=== PATIENT | male | born 1965 | race Caucasian/White ===

== ENCOUNTER 2021-12-27 11:55 | Emergency (ER) | payer OTHER, SELFPAY ==
--- NOTE | ~2021-12-27 | XR_ITS ---
EXAMINATION: XR chest 2V DATE: 12/27/2021 12:24 INDICATION: Chest pain. TECHNIQUE: PA and lateral views of the chest were obtained. COMPARISON: None FINDINGS: The lungs are clear with no focal airspace opacities, pulmonary edema, pleural effusion or pneumothor ax. The cardiomediastinal silhouette is normal. Mild thoracic spondylosis with minimal anterior wedgi ng of a couple lower thoracic vertebral bodies. IMPRESSION: 1. No acute cardiopulmonary disease. Reviewed, dictated and finalized at location A. L ATTORNEY
--- NOTE | 2021-12-27 12:00 | ECG_ITS ---
Measurements Intervals [place] Rate: 59 P: 18 MN: 199 QRS: 44 QRSD: 121 T: 17 QT: 394 QTc: 392 Interpretive Statements SINUS BRADYCARDIA ANTEROSEPTAL INFARCT, AGE INDETERMINATE BASELINE ARTIFACT- I, II, III, AVR, AVL, AVF, V1, V3-V6 ABNORMAL ECG Electronically Signed On 12-27-2021 12:11:09 GRAPHICS INTERN by Klaus Yancey D.O.
[2021-12-27 12:07] VITALS: BP 166/88; PULSE 60; RESP 20; O2SAT 97
[2021-12-27 12:11] VITALS: PULSE 63
[2021-12-27 12:13] LABS: Basophils Absolute Auto 0.1 K/mm3 (0.0-0.1); Basophils Percent Auto 0.6 % (0.2-1.2); Eosinophils Percent Auto 0.4 % (0-4.4); Hematocrit 43.5 % (42.0-52.0); Hemoglobin 14.9 g/dL (14.0-18.0); Immature Granulocyte Absolute 0.04 K/mm3 (0.00-0.031); Immature Granulocyte Percent A 0.4 % (0-0.5); Lymphocytes Percent Auto 16.8 % (18.3-44.2); Mean Corpuscular HGB Conc 34.3 g/dl (32-36); Mean Corpuscular Hemoglobin 31.6 pg (26-34); Mean Corpuscular Volume 92.4 fl (80-100); Mean Platelet Volume 11.4 fl (7.4-10.4); Monocytes Absolute Auto 0.6 K/mm3 (0.1-0.6); Monocytes Percent Auto 6.6 % (2.6-8.5); Neutrophils Absolute Auto 6.7 K/mm3 (1.3-6.7); Neutrophils Percent Auto 75.2 % (45.5-73.1); Platelet Count Result 193 k/mm3 (150-375); Red Blood Count 4.71 M/mm3 (4.6-6.20); White Blood Count 8.9 K/mm3 (4.5-10.0)
[2021-12-27 12:24] LABS: INR 1.1; Prothrombin Time 13.7 Seconds (11.1-14.7)
[2021-12-27 12:25] LABS: Partial Thromboplastin Time 24.1 SECONDS (22.3-36.8)
[2021-12-27 12:28] LABS: Alanine Aminotransferase 33 U/L (4-50); Albumin Level 4.7 g/dL (3.5-5.1); Alkaline Phosphatase 64 U/L (38-126); Anion Gap 9 mmol/L (8-16); Aspartate Amino Transferase 36 U/L (17-59); Bilirubin,Total 0.6 mg/dL (0.2-1.3); Blood Urea Nitrogen 24 mg/dL (9-20); Carbon Dioxide 23 mmol/L (22-30); Chloride 105 mmol/L (98-107); Estimated CRCL calculation 92 ml/min; Estimated Glomerular Filt Rate > 60; Glucose 99 mg/dL (65-110); Lipase 132 U/L (23-300); Potassium 4.6 mmol/L (3.4-5.0); Sodium 137 mmol/L (137-145)
[2021-12-27 12:40] LABS: Troponin I < 0.012 ng/mL (0.000-0.034)
[2021-12-27] MEDS: ASPIRIN 81 MG CHEWABLE TABLET 324 MG PO (13:02)
--- NOTE | 2021-12-27 13:08 | ED.CHESTPAIN ---
HPI - Chest Pain General Chief Complaint: Chest Pain Stated Complaint: chest tightness/nausea Time Seen by Provider: 12/27/21 12:26 Source: patient History of Present Illness HPI narrative: Patient presents with chest tightness and nausea. Patient was walking around at [employer] around 1130 has an onset of left-sided chest pressure associated with nausea. Ports his symptoms come in waves without clear aggravating or alleviating symptoms. Since symptom onset appears to be subsiding but is not completely resolved. Denies any shortness of breath. Reports his brother had a heart attack at 53 and his father had a heart attack and bypass in his 60s and is concerned that he may have had a heart issue. Reports he had a similar event several years ago was evaluated but was unsure what the diagnosis was. He denies recent hospitalizations prior history of blood clots Related Data Allergies Allergy/AdvReac Type Severity Reaction Status Date / Time No Known Allergies Allergy Mild Verified 09/04/21 15:41 Review of Systems Review of Systems: CONSTITUTIONAL: Denies fever, chills, or sweats. EYES: Denies visual changes, redness, or discharge. ENT: Denies rhinorrhea, congestion, sore throat, or otalgia. CARDIOVASCULAR: Denies chest pain, palpitations, or edema. RESPIRATORY: Denies cough or dyspnea. GASTROINTESTINAL: Denies abdominal pain, nausea, vomiting, or diarrhea. GENITOURINARY: Denies dysuria or hematuria. SKIN: Denies rash or itching. MUSCULOSKELETAL: Denies back pain, joint pain, or myalgia. NEUROLOGIC: Denies headache, numbness, dizziness, or weakness. PSYCHIATRIC: Denies anxiety or depression. All systems reviewed & are unremarkable except as noted in HPI and below PMFSH Family History Family History Father Depression Hypertension Family history of elevated blood lipids Family history of cardiovascular disease Family history of coronary artery disease Social History Social History (Updated 12/27/21 @ 13:10 by Ace Mixon MD) Smoking status: Never smoker Alcohol intake: current Other substance usage details: gummies to sleep Exam Narrative: GENERAL: Well-appearing, well-nourished, and in no acute distress. HEAD: Normocephalic, atraumatic. EYES: PERRLA and EOMI. ENT: Nares clear, no rhinorrhea or epistaxis. Mucous membranes moist. NECK: Supple. No masses. No JVD CHEST: Clear to auscultation. No respiratory distress. No wheezes rales or rhonchi HEART: Regular rate and rhythm. No murmur heard. Normal peripheral pulses. ABDOMEN: Soft, nontender, nondistended, normal active bowel sounds. EXTREMITIES: Normal range of motion. No edema. SKIN: Warm, dry, no rash. NEURO: No focal deficits. Alert and oriented x3. PSYCH: Normal mood and affect. Course Reevaluation(s) Reevaluation #1: Patient resting comfortably reports symptoms have resolved results and plan reviewed with patient. Patient is comfortable outpatient plan. Date: 12/27/21 Time: 16:03 Vital Signs Vital signs: Vital Signs Pulse Rate 60 12/27/21 12:07 Respiratory Rate 20 12/27/21 12:07 Blood Pressure 166/88 H 12/27/21 12:07 Pulse Oximetry 97 12/27/21 12:07 Pulse Rate 61 12/27/21 16:22 Respiratory Rate 15 12/27/21 16:22 Blood Pressure 133/79 12/27/21 16:22 Pulse Oximetry 97 12/27/21 16:22 MDM - Chest Pain MDM Narrative Medical decision making narrative: H&P as above, vss, pt looks clinically well, exam reassuring, labs clinically unremarkable including delta troponin, img without acute process, additional labs/img considered, symptomatic relief available as needed, on reevaluation pt continues to looks clinically well. Symptoms remain of unclear etiology there is low clinical concern for ACS, PE, dissection, pneumothorax, plan to tx/monitor as op w/ pcm f/u findings/plan discussed with pt, pt agree/comfortable with plan, return precautions given Lab Data R
[2021-12-27] MEDS: SODIUM CHLORIDE 0.9% IV 1,000 ML 999 ML IV CONT (14:41)
[2021-12-27 15:50] LABS: Troponin I < 0.012 ng/mL (0.000-0.034)
[2021-12-27 16:22] VITALS: BP 133/79; PULSE 61; RESP 15; O2SAT 97
== END 2021-12-27 16:23 | disposition home or self-care (01) ==
PROVIDERS: Emergency Medicine; Emergency Provider Emergency Medicine; PCP Family Medicine
DX: R07.89 Other chest pain (principal); R00.1 Bradycardia, unspecified; R94.31 Abnormal electrocardiogram [ECG] [EKG]
CPT/HCPCS: 36415; 71046; 80053; 83690; 84484; 85025; 85610; 85730; 93005; 96360; 99284; A9270; J7030

== ENCOUNTER 2022-01-22 09:39 | Outpatient (CLI) | payer OTHER, SELFPAY ==
--- NOTE | 2022-01-22 09:47 | EST_ITS ---
Patient Info Name: Albino Tsai Age: 56 years : 1965 Gender: Male Ht: 75 in Wt: 265 lbs BSA: 2.55 m2 Technical Quality: Fair Exam Date: 01/22/2022 10:29 AM Exam Location: [facility] Patient Status: Outpatient Admit Date: 01/22/2022 Staff Ordering Physician: Susanna Mcpherson DO Health Insurance Specialist: Myke Garcia RDCS, RT Attending Provider: KLAUS ARROYO DO Referring Physician: Vida RODRIGUEZ; Exercise Technologist: Luba Romero RDCS Exercise Physician: Klaus Arroyo DO Exam Type: CA stress echo Study Info Indications R07.9 - Chest pain, unspecified Treadmill exercise stress echocardiogram is performed. Summary 1. 1. Negative [place]um exercise stress test for ischemic ST changes by ECG criteria. 2. 2. Good functional capacity, achieving 12 METs of workload. 3. 3. Hypertensive response to exercise. 4. 4. Appropriate HR response to exercise. 5. 5. Appropriate HR recovery at 1 minute post exercise. 6. 6. Negative stress echocardiogram for ischemia by wall motion analysis. 7. 7. Patient informed of the above results. Stress Echo Findings Left Ventricle Appropriate increase in LV endocardial thickening with systole. Appropriate augmenation of contractility with systole. No wall motion abnormality. Left Ventricle Normal LV systolic function, no wall motion abnormality. Protocol: [place]um Stress ECG Details Stage: REST Duration (min): 0 min : 53 sec Speed (mph): 0.0 Grade (%): 0 HR (bpm): 52 SBP (mmHg): 137 DBP (mmHg): 77 METS: --- Stage: REST Duration (min): 11 min : 12 sec Speed (mph): 0.0 Grade (%): 0 HR (bpm): 52 SBP (mmHg): 137 DBP (mmHg): 77 METS: --- Stage: STAGE 1 Duration (min): 1 min : 0 sec Speed (mph): 1.7 Grade (%): 10 HR (bpm): 81 SBP (mmHg): 137 DBP (mmHg): 77 METS: --- Stage: STAGE 1 Duration (min): 2 min : 0 sec Speed (mph): 1.7 Grade (%): 10 HR (bpm): 87 SBP (mmHg): 137 DBP (mmHg): 77 METS: --- Stage: STAGE 1 Duration (min): 3 min : 0 sec Speed (mph): 1.7 Grade (%): 10 HR (bpm): 86 SBP (mmHg): 159 DBP (mmHg): 82 METS: --- Stage: STAGE 2 Duration (min): 1 min : 0 sec Speed (mph): 2.5 Grade (%): 12 HR (bpm): 96 SBP (mmHg): 159 DBP (mmHg): 82 METS: --- Stage: STAGE 2 Duration (min): 2 min : 0 sec Speed (mph): 2.5 Grade (%): 12 HR (bpm): 101 SBP (mmHg): 181 DBP (mmHg): 64 METS: --- Stage: STAGE 2 Duration (min): 3 min : 0 sec Speed (mph): 2.5 Grade (%): 12 HR (bpm): 105 SBP (mmHg): 181 DBP (mmHg): 64 METS: --- Stage: STAGE 3 Duration (min): 1 min : 0 sec Speed (mph): 3.4 Grade (%): 14 HR (bpm): 118 SBP (mmHg): 183 DBP (mmHg): 84 METS: --- Stage: STAGE 3 Duration (min): 2 min : 0 sec Speed (mph): 3.4 Grade (%): 14 HR (bpm): 124 SBP (mmHg): 183 DBP (mmHg): 84 METS: --- Stage: STAGE 3 Dur
== END 2022-01-22 09:40 | disposition home or self-care (01) ==
LOC: ANHCARD 09:41
PROVIDERS: PCP Family Medicine; Visit Provider Family Medicine
DX: R07.89 Other chest pain (principal); Z82.49 Family history of ischemic heart disease and other diseases of the circulatory system
CPT/HCPCS: 93351

== ENCOUNTER → 2023-04-01 15:41 | Outpatient (CLI) | payer OTHER, SELFPAY ==
--- NOTE | ~2023-04-01 | US_ITS ---
EXAMINATION: US soft tissue abdomen DATE: 04/01/2023 15:55 INDICATION: Other intra-abdominal and pelvic swelling, mass, and lump. TECHNIQUE: Multiple grayscale and Doppler ultrasound images of the abdomen were obtained. COMPARISON: None FINDINGS: There is a small umbilical hernia containing fat and trace ascites. IMPRESSION: 1. Small umbilical hernia containing fat and trace ascites. Reviewed, dictated and finalized at location E.
== END ==
PROVIDERS: PCP Family Medicine; Visit Provider Nurse Practitioner Family
DX: K42.9 Umbilical hernia without obstruction or gangrene (principal)
CPT/HCPCS: 76705

== ENCOUNTER 2023-07-15 03:19 | Day surgery (SDC) | payer OTHER, SELFPAY ==
[2023-07-05 10:50] VITALS: BMI 35.0
[2023-07-15 07:10] VITALS: BP 146/88; PULSE 66; RESP 18; TEMP 36.1; O2SAT 98
[2023-07-15] MEDS: LACTATED RINGERS 1,000 ML 150 ML IV CONT (07:17)
--- NOTE | 2023-07-15 07:27 | PM.HPGS ---
History of Present Illness History of Present Illness Consent: Risks, benefits, and alternatives have been discussed and questions answered. Patient agrees to proceed with procedure. Chief complaint: neoplasm screening Narrative: Albino Tsai is a 57 year old male Presents for screening colonoscopy. Patient has a history of adenomatous colon polyp removed at the time of previous colonoscopy 2018. Patient reports that his current weight appetite and bowel movements are normal. Patient denies abdominal pain. He has had no bleeding. Family history is noncontributory. Review of Systems Review of Systems: Review of systems noncontributory. [facility] Past Medical History Medical History Umbilical mass Family History Family History Father Depression Hypertension Family history of elevated blood lipids Family history of cardiovascular disease Family history of coronary artery disease Sibling Heart disease Hypertension Mother Heart disease Hypertension Social History Social History Smoking status: Never smoker Alcohol intake: current Drinks per week: 3 Alcohol use details: WHISKEY Substance use: never Substance use type: does not use Other substance usage details: gummies to sleep Lack of Transportation: No Lack of Food: Never True Current Housing: I Have Housing Concerned About Future Housing: No Difficulty Paying Gas/Electric Bills: No Difficulty Paying for Meds: No Currently Unemployed: No Education: Bachelor's Degree Difficulty w/ Childcare or Family Care: No Living arrangements: with family Spiritual care concerns: No Meds Home Medications and Allergies Home Medications Medication Instructions Recorded Confirmed Type aspirin 81 mg tablet,delayed 81 mg PO DAILY 03/30/23 07/05/23 History release (Adult Aspirin Regimen) multivitamin (Daily Multi-Vitamin 1 tablet PO DAILY 03/30/23 07/05/23 History tablet) lisinopril 40 mg tablet 40 mg PO DAILY 07/05/23 07/05/23 History rosuvastatin 10 mg tablet 10 mg PO DAILY 07/05/23 07/05/23 History Allergies Allergy/AdvReac Type Severity Reaction Status Date / Time No Known Allergies Allergy Mild Verified 07/15/23 07:09 Vital Signs Vital Signs - 24 hr 07/15/23 07:10 Temperature 96.9 F L Pulse Rate 66 Respiratory Rate 18 Blood Pressure 146/88 H Pulse Oximetry 98 Oxygen Delivery Room Air Exam Narrative: Physical exam reveals patient to be alert. Vital signs stable. HEENT exam is unremarkable. Patient is anicteric. Lungs are clear to auscultation and percussion. Heart is without murmur or extra sounds. Abdomen bowel sounds are present soft nontender with no organomegaly. Digital external rectal exam is normal. Assessment and Plan Assessment and plan (1) History of colon polyps: Code(s): Z86.010 - Personal history of colonic polyps Status: Acute Assessment and Plan: Patient has a history of adenomatous colon polyp removed from the colon in 2018. Plan for surveillance colonoscopy at this time. Further recommendations may be given after endoscopy.
--- NOTE | 2023-07-15 08:17 | WPDANESEPPF ---
Anes - Initial Pre Proc Eval Procedure: Operation Date: 07/15/23 08:30 Proposed Procedures p Screening Colonoscopy - Oscar Perez MD Date/Time: 07/15/23 08:17 Surgeon: Oscar Perez MD Pre Op Diagnosis: neoplasm screening Patient Data Age: 57 Gender: M Height: 1.91 m Weight: 119.2 kg Last Vital Signs Temp 96.9 F L 07/15/23 07:10 Pulse 66 07/15/23 07:10 Resp 18 07/15/23 07:10 BP 146/88 H 07/15/23 07:10 Pulse Ox 98 07/15/23 07:10 O2 Del Method Room Air 07/15/23 07:10 Allergies Allergy/AdvReac Type Severity Reaction Status Date / Time No Known Allergies Allergy Mild Verified 07/15/23 07:09 Home Medications Medication Instructions Recorded Confirmed Type aspirin 81 mg tablet,delayed 81 mg PO DAILY 03/30/23 07/05/23 History release (Adult Aspirin Regimen) multivitamin (Daily Multi-Vitamin 1 tablet PO DAILY 03/30/23 07/05/23 History tablet) lisinopril 40 mg tablet 40 mg PO DAILY 07/05/23 07/05/23 History rosuvastatin 10 mg tablet 10 mg PO DAILY 07/05/23 07/05/23 History Patient hx anesthesia problems: none Family hx anesthesia problems: none Results Review: All pre-operative results and documents have been reviewed as part of the pre-operative evaluation. [facility] Past Medical History Medical History Umbilical mass Family History Family History Father Depression Hypertension Family history of elevated blood lipids Family history of cardiovascular disease Family history of coronary artery disease Sibling Heart disease Hypertension Mother Heart disease Hypertension Social History Social History Smoking status: Never smoker Alcohol intake: current Drinks per week: 3 Alcohol use details: WHISKEY Substance use: never Substance use type: does not use Other substance usage details: gummies to sleep Lack of Transportation: No Lack of Food: Never True Current Housing: I Have Housing Concerned About Future Housing: No Difficulty Paying Gas/Electric Bills: No Difficulty Paying for Meds: No Currently Unemployed: No Education: Bachelor's Degree Difficulty w/ Childcare or Family Care: No Living arrangements: with family Spiritual care concerns: No Anes - Eval Final PreProcedure Day of Procedure 07/15/23 08:17 Patient weight: obese Heart: regular rate and rhythm Lungs: clear to auscultation Airway: Mallampati scale class II Neurological: alert and oriented Last oral intake: >/= 8 hours ASA classification: II Emergent: no Anesthetic plan: proceed Anesthesia type and monitoring: general GIVS and standard monitoring Results Review: All pre-operative results and documents have been reviewed as part of the pre-operative evaluation. Informed Consent: The patient's anesthetic plan and its attendant risks and benefits were discussed with the patient/family/POA. Questions were solicited and answers provided to the satisfaction of the patient/family/POA.
[2023-07-15] MEDS: SIMETHICONE ORAL SUSPENSION 20 MG/0.3 ML 30 ML BOTTLE 0.6 ML IRRIGATION (08:38)
[2023-07-15 08:56] VITALS: BP 126/83; PULSE 60; RESP 20; O2SAT 98
[2023-07-15 09:06] VITALS: BP 132/89; PULSE 54; RESP 22; O2SAT 99
[2023-07-15 09:16] VITALS: BP 148/97; PULSE 62; RESP 22; O2SAT 100
== END 2023-07-15 09:24 | disposition home or self-care (01) ==
PROVIDERS: PCP Family Medicine; Visit Provider Internal Medicine Gastroenterology
PROC: 0DJD8ZZ Inspection of Lower Intestinal Tract, Via Natural or Artificial Opening Endoscopic (ICD-10-PCS; CPT 45378; principal; 2023-07-15 08:30)
DX: Z12.11 Encounter for screening for malignant neoplasm of colon (principal); D12.2 Benign neoplasm of ascending colon; K64.8 Other hemorrhoids; Z79.82 Long term (current) use of aspirin; E66.9 Obesity, unspecified; Z68.32 Body mass index [BMI] 32.0-32.9, adult
CPT/HCPCS: 45380; 88305; J2704; J7120

== ENCOUNTER 2023-08-23 14:41 | Outpatient (CLI) | payer OTHER, SELFPAY ==
--- NOTE | 2023-08-23 15:03 | ECG_ITS ---
Measurements Intervals [place] Rate: 54 P: 14 ID: 211 QRS: 46 QRSD: 124 T: 21 QT: 407 QTc: 387 Interpretive Statements SINUS BRADYCARDIA WITH FIRST DEGREE AV BLOCK POSSIBLE RIGHT VENTRICULAR CONDUCTION DELAY [RSR (QR) IN V1/V2] BORDERLINE ECG COMPARED TO ECG 12/27/2021 12:04:59 FIRST DEGREE AV BLOCK NOW PRESENT Electronically Signed On 08-23-2023 17:13:38 CDT by Americo Cronin M.D.
== END 2023-08-23 14:42 | disposition home or self-care (01) ==
LOC: ANHSURGERY 14:44
PROVIDERS: PCP Family Medicine; Visit Provider Surgery
DX: Z01.818 Encounter for other preprocedural examination (principal); I44.0 Atrioventricular block, first degree; R93.1 Abnormal findings on diagnostic imaging of heart and coronary circulation; E78.5 Hyperlipidemia, unspecified
CPT/HCPCS: 93005

== ENCOUNTER 2023-08-25 01:02 | Day surgery (SDC) | payer OTHER, SELFPAY ==
[2023-08-11 14:36] VITALS: BMI 34.3
--- NOTE | 2023-08-11 14:40 | PC.NURSE ---
Report to the Outpatient Waiting Room, entrance under the green pavilion located off [facility], at time 10:00 on date 08/25/23. Planned Procedure Time: 12:00. Time changes happen often and if your time is changed the preop area will call you the afternoon before. - You and your visitor will be asked to self-screen and do not enter if you have any COVID symptoms. - A mask is optional within the hospital at this time. Patients may have clear liquids (water, carbonated beverages, clear teas, apple juice) until 3 hours prior to surgery (9:00) with a maximum of 20 ounces. - No food from midnight until time of surgery Take the following medications with a SIP of water the morning of surgery: BUSPIRONE DO NOT STOP ANY OF YOUR OTHER PRESCRIPTION MEDICATIONS PRIOR TO SURGERY ?EXCEPT THE FOLLOWING Medications to discontinue per physician: VITAMINS Date to take last dose: 08/21/23 Please no make-up, nail thai, hairspray, perfume, deodorant, or body powder the day of surgery. No jewelry (including any body piercings) or valuables the day of surgery, leave them at home. Please take a shower or bath the night before, or the morning of, surgery with an antibacterial soap. Wear comfortable, loose fitting clothing. - Jewelry must be removed prior to entering the operating room. Rings and piercings that are not removed may be cut off. - The hospital will not accept responsibility for valuables. - Please leave all valuables, including medications, at home the day of surgery. If you are going home after surgery, a licensed trailer truck driver must drive you home. - NO public transportation without another adult if you receive anesthesia. - We recommend that an adult stay with you for 24 hours following discharge. - We also recommend that you do not drive, make important decision, drink alcoholic beverages, or take any drugs that were not prescribed by your health care provider for at least 24 hours after your discharge time. Follow any additional instructions given to you from your surgeon. If you or anyone in your household have experienced Covid symptoms in the past week, please notify your surgeon or the nurse liaison at the phone number below for possible testing. Telephone instructions given to PT - LIA CARREON and asked if any additional questions and then verbalized understanding. Patient advised to call surgeon office or pre surgery nurse liaison [phone] if any additional questions.
[2023-08-25] VITALS (7 sets, daily range): BP systolic 141–149; BP diastolic 73–78; PULSE 50–75; RESP 13–20; TEMP 36.2; O2SAT 98–100
--- NOTE | 2023-08-25 09:04 | WPDHPUPDATE1 ---
History and Physical Update Update Date/Time: 08/25/23 09:04 History and Physical has been reviewed, including an updated exam of the patient. There are NO changes in the patient's condition. Risks, benefits, and alternatives have been discussed and questions answered. Patient agrees to proceed with procedure.
--- NOTE | 2023-08-25 09:04 | PM.IMHP ---
H&P: HPI History of Present Illness Date/Time: 08/25/23 09:04 Chief Complaint: umbilical hernia Narrative: Albino is 57 y/o male who presents to the office at the request of Kenya Cabezas evaluation of an umbilical hernia. Patient states he noticed a bulge at his umbilicus about 5 months ago. He states he experiences pain to the area with lifting weights and playing golf. Denies any changes in eating or bowel habits. Review of Systems Review of Systems: All systems reviewed & are unremarkable except as noted in HPI and below PMFSH Past Medical History Medical History Umbilical mass Family History Family History Father Depression Hypertension Family history of elevated blood lipids Family history of cardiovascular disease Family history of coronary artery disease Sibling Heart disease Hypertension Mother Heart disease Hypertension Social History Social History Smoking status: Never smoker Alcohol intake: current Drinks per week: 5 Alcohol use details: WHISKEY Substance use: never Substance use type: does not use Other substance usage details: gummies to sleep Lack of Transportation: No Lack of Food: Never True Current Housing: I Have Housing Concerned About Future Housing: No Difficulty Paying Gas/Electric Bills: No Difficulty Paying for Meds: No Currently Unemployed: No Education: Bachelor's Degree Difficulty w/ Childcare or Family Care: No Living arrangements: with family Spiritual care concerns: No Meds Home Medications and Allergies Home Medications Medication Instructions Recorded Confirmed Type aspirin 81 mg tablet,delayed 81 mg PO DAILY 03/30/23 08/11/23 History release (Adult Aspirin Regimen) multivitamin (Daily Multi-Vitamin 1 tablet PO DAILY 03/30/23 08/11/23 History tablet) lisinopril 40 mg tablet 40 mg PO DAILY 07/05/23 08/11/23 History rosuvastatin 10 mg tablet 10 mg PO DAILY 07/05/23 08/11/23 History buspirone 10 mg tablet 10 mg PO BID #180 tabs 08/04/23 08/11/23 Rx Allergies Allergy/AdvReac Type Severity Reaction Status Date / Time No Known Allergies Allergy Mild Verified 08/11/23 14:35 Exam Const: General: cooperative, comfortable, no acute distress and obese Resp: Auscultation: clear to auscultation bilaterally Cardio: Rate: regular rate Rhythm: regular rhythm GI: Inspection: normal to inspection and non-distended GI Palp: Yes Hernia present Other: 1x1 cm umbilical hernia Assessment and Plan Assessment and plan (1) Umbilical hernia: Qualifiers: Obstruction and gangrene presence: without obstruction or gangrene Qualified Code(s): K42.9 - Umbilical hernia without obstruction or gangrene Code(s): K42.9 - Umbilical hernia without obstruction or gangrene Status: Acute Assessment and Plan: will setup for open repair c mesh in OR
[2023-08-25] MEDS: ACETAMINOPHEN 500 MG TABLET 1000 MG PO (10:50)
[2023-08-25] MEDS: LACTATED RINGERS 1,000 ML 30 ML IV CONT ×2 (10:50→12:57)
[2023-08-25] MEDS: KETOROLAC 15 MG/ML VIAL (*BKC) IV PUSH (10:50)
--- NOTE | 2023-08-25 11:24 | P.PNAN_ITS ---
Anes - Initial Pre Proc Eval Procedure: Operation Date: 08/25/23 12:00 Proposed Procedures p Open Umbilical Hernia Repair with Mesh - Betzaida Lara MD Date/Time: 08/25/23 11:24 Surgeon: Betzaida Lara MD Pre Op Diagnosis: Umb Hernia Patient Data Age: 57 Gender: M Height: 1.91 m Weight: 126 kg Allergies Allergy/AdvReac Type Severity Reaction Status Date / Time No Known Allergies Allergy Mild Verified 08/25/23 11:07 Home Medications Medication Instructions Recorded Confirmed Type aspirin 81 mg tablet,delayed 81 mg PO DAILY 03/30/23 08/11/23 History release (Adult Aspirin Regimen) multivitamin (Daily Multi-Vitamin 1 tablet PO DAILY 03/30/23 08/11/23 History tablet) lisinopril 40 mg tablet 40 mg PO DAILY 07/05/23 08/11/23 History rosuvastatin 10 mg tablet 10 mg PO DAILY 07/05/23 08/11/23 History buspirone 10 mg tablet 10 mg PO BID #180 tabs 08/04/23 08/25/23 Rx Patient hx anesthesia problems: none Family hx anesthesia problems: none Results Review: All pre-operative results and documents have been reviewed as part of the pre- operative evaluation. [facility] Past Medical History Medical History Umbilical mass Family History Family History Father Depression Hypertension Family history of elevated blood lipids Family history of cardiovascular disease Family history of coronary artery disease Sibling Heart disease Hypertension Mother Heart disease Hypertension Social History Social History Smoking status: Never smoker Alcohol intake: current Drinks per week: 5 Alcohol use details: WHISKEY Substance use: never Substance use type: does not use Other substance usage details: gummies to sleep Lack of Transportation: No Lack of Food: Never True Current Housing: I Have Housing Concerned About Future Housing: No Difficulty Paying Gas/Electric Bills: No Difficulty Paying for Meds: No Currently Unemployed: No Education: Bachelor's Degree Difficulty w/ Childcare or Family Care: No Living arrangements: with family Spiritual care concerns: No Anes - Eval Final PreProcedure Day of Procedure 08/25/23 11:24 Patient weight: obese Heart: regular rate and rhythm Lungs: clear to auscultation Airway: Mallampati scale class II Neurological: alert and oriented Last oral intake: >/= 8 hours ASA classification: II Emergent: no Anesthetic plan: proceed Anesthesia type and monitoring: general LMA and standard monitoring Results Review: All pre-operative results and documents have been reviewed as part of the pre- operative evaluation. Informed Consent: The patient's anesthetic plan and its attendant risks and benefits were discussed with the patient/family/POA. Questions were solicited and answers provided to the satisfaction of the patient/family/POA.
[2023-08-25] MEDS: ceFAZolin 3 GM/D5W 100 ML 100 ML IVPB (12:08)
[2023-08-25] MEDS: BUPIVACAINE/EPINEPHRINE 0.5% 50 ML VIAL 30 ML INFILTRATE (12:08)
--- NOTE | 2023-08-25 12:57 | P.OP_ITS ---
Procedure Note - Detailed Date of Procedure 08/25/23 Pre-op Diagnosis Umbilical hernia measuring 1.5 x 1 cm Post-op Diagnosis Same Procedure Performed umbilical hernia repair with defect measuring 1.5 x 1 cm with mesh Surgeon Betzaida Lara MD Anesthesia General Indications 67-year-old male presenting to the office with a umbilical hernia. The patient reports hernia becoming more symptomatic over time. Findings 1.5 x 1 cm umbilical hernia Description of Procedure The patient was taken to the operating room placed in the supine position. After adequate induction of general anesthesia, the patient was prepped and draped in the normal sterile fashion. A time-out was then done to verify the patient's identity, as well as the procedure being performed. I began by localizing the area around the umbilicus. I then made a curvilinear incision in the infraumbilical fold. This was taken down to level fascia. I then was able to bluntly dissect around the umbilicus. I then carefully dissected the umb ilicus off the underlying fascia. I then noted a small defect with incarcerated preperitoneal fat and an adjacent loop of small intestine. I was able to mobilize the incarcerated tissue and reduce it back into the abdominal cavity. This left an 1.5 x 1 cm defect. I then placed a 4.6 cm round piece of ventralex mesh in the underlay position. This was noted to have good, wide local coverage of the defect. I then closed this defect primarily with interrupted 0 Ethibond suture over the underlay mesh repair. I then reapproximated the umbilicus to the fascia with a 3 0 Vicryl U-stitch. The subcutaneous tissue was then closed with 3 0 Vicryl suture. The skin was closed with 4 0 Monocryl subcuticular suture. Dermabond was then placed on the wound. The patient tolerated the procedure well was extubated in the operating room postop. He will be transferred to the recovery room in stable condition. Implants 4.6 cm ventralex mesh in underlay position Estimated Blood Loss 5 Drains No Packing No Pathology None sent Complications No immediate complications Condition Stable Disposition PACU [facility] Billing Surgery - Charge Forward: Surgery Billing
== END 2023-08-25 14:29 | disposition home or self-care (01) ==
PROVIDERS: PCP Family Medicine; Visit Provider Surgery
PROC: (CPT 49591; principal; 2023-08-25 12:00)
DX: K42.9 Umbilical hernia without obstruction or gangrene (principal); Z79.82 Long term (current) use of aspirin; E66.9 Obesity, unspecified; Z68.34 Body mass index [BMI] 34.0-34.9, adult
CPT/HCPCS: 49591; 93005; A9270; C1781; J0690; J1100; J1885; J2250; J2405; J2704; J3010; J7120

== ENCOUNTER 2023-11-26 08:56 | Outpatient (CLI) | payer OTHER, SELFPAY ==
--- NOTE | ~2023-11-26 | XR_ITS ---
XR hip LT 2V w AP pelvis DATE: 11/26/2023 09:19 INDICATION: Left hip pain for 8 months, only in sitting position TECHNIQUE: AP pelvis. AP and lateral views of left hip. COMPARISON: None FINDINGS: The pubic symphysis and sacroiliac joints are intact. No pelvic fracture or bone destructio n is detected. No fracture, dislocation, avascular necrosis or bone destruction of the left hip is detected. Mild to moderate right hip osteoarthritis IMPRESSION: No significant abnormality of pelvis or left hip Mild to moderate right hip osteoarthritis. Reviewed, dictated and finalized at location B. BUILDING MACHINE OPERATOR
== END 2023-11-26 08:57 ==
LOC: GOSHIMG 08:57
PROVIDERS: PCP Family Medicine; Visit Provider Family Medicine
DX: M25.552 Pain in left hip (principal); M16.11 Unilateral primary osteoarthritis, right hip
CPT/HCPCS: 73502

== ENCOUNTER 2023-12-23 15:10 | Outpatient (CLI) | payer OTHER, SELFPAY ==
--- NOTE | ~2023-12-23 | MR_ITS ---
MRI of the left hip Clinical history: Pain Technique: Coronal T1-weighted, T2-weighted, and proton-density fat-sat images, and axial T1-weighted and proton-density fat-sat images were acquired through the pelvis. Coronal T2-weighted images and c oronal, axial, and sagittal proton-density fat-sat images were acquired through the left hip. Findings: There is no fracture or avascular necrosis of either hip. Bone marrow signals in the proxim al femora and visualized pelvic bones are unremarkable. There is probable mild chondral thinning of b oth hip joints. There is probable degenerative tearing of the superior to posterior left acetabular l abrum. No joint effusion evident. Visualized musculature about the pelvis and left hip is unremarkable. No muscle atrophy or edema seen . Visualized tendons are intact. No bursitis. No soft tissue mass or fluid collection. 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 Mild chondromalacia of both hip joints. Reviewed, dictated and finalized at location . NESS DEVELOPMENT EXECUTIVE IMPRESSION: Probable degenerative tearing of the superior to posterior left acetabular labr um. Mild chondromalacia of both hip joints.
== END 2023-12-23 15:11 ==
PROVIDERS: PCP Family Medicine; Visit Provider Family Medicine
DX: M25.552 Pain in left hip (principal); M94.252 Chondromalacia, left hip; M94.251 Chondromalacia, right hip
CPT/HCPCS: 73721

== ENCOUNTER 2024-02-01 13:51 | Outpatient (CLI) | payer OTHER, SELFPAY ==
--- NOTE | ~2024-02-01 | MR_ITS ---
EXAMINATION: MR lumbar spine wo con DATE: 02/01/2024 14:25 INDICATION: Radiculopathy, lumbar region. TECHNIQUE: Magnetic resonance imaging (MRI) of the lumbar spine was performed without intravenous con trast. Sequences included sagittal T2-weighted FSE, sagittal T2-weighted FS FSE, sagittal T1-weighted FSE, and axial T2-weighted FSE. COMPARISON: None FINDINGS: There is 3 mm retrolisthesis of L5 on S1. There is mild chronic anterior wedging of T12 magdy tebral body. There is mildly decreased disc height at L5-S1. The distal spinal cord signal intensity is normal. The conus medullaris is at T12-L1. The following disc levels are specifically discussed: L1-L2: The disc does not extend beyond the endplate margin. There is mild bilateral facet joint osteo arthritis. There is no neural foraminal stenosis. There is no central canal stenosis. L2-L3: There is a right foraminal protrusion. There is severe right and moderate left facet joint ost eoarthritis. There is mild right neural foraminal stenosis. There is no central canal stenosis. L3-L4: The disc is bulging and has an annular fissure. There is severe right and moderate left facet joint osteoarthritis. There is mild bilateral neural foraminal stenosis. There is mild central canal stenosis. L4-L5: The disc is bulging. There is severe bilateral facet joint osteoarthritis. There is mild bilat eral neural foraminal stenosis. There is no central canal stenosis. L5-S1: The disc is bulging and has an annular fissure. There is severe right and moderate left facet joint osteoarthritis. There is mild bilateral neural foraminal stenosis. There is no central canal st enosis. IMPRESSION: 1. Mild lumbar spondylosis. Reviewed, dictated and finalized at location A. IMPRESSION: 1. Mild lumbar spondylosis.
== END 2024-02-01 13:52 ==
LOC: GOSHIMG 13:52
PROVIDERS: PCP Family Medicine; Visit Provider Orthopaedic Surgery
DX: M43.06 Spondylolysis, lumbar region (principal)
CPT/HCPCS: 72148